=== PATIENT | male | born 1960 | race Caucasian/White ===

== ENCOUNTER 2017-01-27 12:18 | Observation (INO) | payer OTHER ==
[~2017-01-27] VITALS: Ht 170.2 cm; Wt 189.4 kg
[~2017-01-27 12:18] MED LIST: ALLOPURINOL300 MG PO; ASPIR 8181 M1 PO; ASPIRIN EC325 MG PO; ASPIRIN81 M1 PO; BAYER ASPIRIN325 M1 PO; COUMADIN5 MG PO; COUMADIN7.5 MG PO; FENOFIBRATE145 M1 PO; FUROSEMIDE40 MG PO; GLIPIZIDE10 M1 PO; GLUCOPHAGE1000 MG PO; GLUCOTROL10 MG PO; LANTUS 3 M100 UNITS/ PO; LANTUS 3 M100 UNITS1 SC; LASIX40 MG PO; LO-DOSE ASPIRIN81 M1 PO; LOVENOX120 MG/0.8 SC; MELOXICAM7.5 MG PO; METOPROLOL SUC100 MG PO; MOBIC7.5 MG PO; NOVOLOG PE100 UNITS/ SC; PERCOCET 5/31 TABLET PO; SIMVASTATIN20 M1 PO; SIMVASTATIN40 MG PO; TOPROL XL100 MG PO
[2017-01-27 12:44] LABS: POINT-OF-CARE METER ID UU13113747
[2017-01-27 13:01] LABS: EOSINOPHIL (%) 1.9 % (0-5); EOSINOPHIL COUNT 0.2 K/uL (0-0.3); HEMATOCRIT 37.9 % (38.0-50.0); IMMATURE GRANULOCYTE (%) 0.4 % (0.0-0.7); INSTRUMENT ABS NEUTROPHIL CT 6.3 K/uL; LYMPHOCYTE COUNT 1.7 K/uL (1.0-2.8); MCH 28.2 PG (29.0-34.0); MCHC 32.2 G/DL (30.0-36.0); MCV 87.5 FL (86-99); MEAN PLAT.VOLUME 9.1 uM^3 (9.0-12.4); MONOCYTE (%) 9.5 % (3-12); MONOCYTE COUNT 0.9 K/uL (0-0.8); NEUTROPHIL (%) 69.4 % (45-76); NEUTROPHIL COUNT 6.3 K/uL (1.8-6.4); PLATELET COUNT 345 K/uL (156-360); RBC DIS.WIDTH-CV 14.1 % (11.8-14.6); RBC DIS.WIDTH-SD 45.2 % (39-53); RED BLOOD COUNT 4.33 M/uL (4.00-5.50); WHITE BLOOD COUNT 9.1 K/uL (4.1-10.2)
[2017-01-27 13:10] LABS: CHLORIDE 103 mEq/L (99-109); POTASSIUM 4.9 mEq/L (3.7-5.4); SODIUM 137 mEq/L (136-147)
[2017-01-27 13:12] LABS: GLUCOSE 309 mg/dL (70-99)
[2017-01-27 13:13] LABS: ANION GAP 14 MEQ/L (2-14)
[2017-01-27 13:16] LABS: GFR ESTIMATE (CALCULATED) 56 mL/min/; UREA NITROGEN (BUN) 23 mg/dL (9-23)
[2017-01-27 13:22] LABS: TROP-I INTERPRETATION NEGATIVE; TROPONIN-I < 0.01 ng/mL (0.0-0.30)
[2017-01-27 14:04] LABS: ADD MIUA? NO; BILIRUBIN NEGATIVE; BLOOD NEGATIVE; COLOR YELLOW ((YELLOW)); GLUCOSE (STRIP) >=500; KETONES 5; LEUKOCYTES NEGATIVE; NITRITE NEGATIVE; PROTEIN (STRIP) NEGATIVE; SPECIFIC GRAVITY 1.023 (1.000-1.030); UROBILINOGEN 0.2 MG/DL (0.2-1.0)
[2017-01-27 15:39] LABS: CARBOXY HGB 1.8 % (0-5); METHEMOGLOBIN 0.9 % (0-1.5); PCO2 42 mm Hg (35-45)
[2017-01-27 15:40] LABS: PO2 57 mm Hg (80-100); SITE LR
[2017-01-27 15:41] LABS: COMMENTS - BLOOD GASES A+C+; DEVICE ROOM AIR; TOTAL RESP RATE 30 resp/min
[2017-01-27 15:49] LABS: INTER. NORMALIZED RATIO 2.2; PROTHROMBIN TIME 25.5 SEC (10.2-12.9)
[2017-01-27 15:52] LABS: Estimated Average Glucose 226 mg/dL (70-123); HEMOGLOBIN A1c (GLYCOHEMOGLOB) 9.5 % HGB (Below 5.7)
[2017-01-27] MEDS ORDERED: MELOXICAM7.5 MG PO (15:54)
[2017-01-27] MEDS ORDERED: ZYLOPRIM300 MG PO (15:55)
[2017-01-27] MEDS ORDERED: FENOFIBRATE145 M1 PO (15:55)
[2017-01-27] MEDS ORDERED: XARELTO20 MG PO (15:56)
[2017-01-27] MEDS ORDERED: LAMISIL250 MG PO (15:56)
[2017-01-27] MEDS ORDERED: K-DUR20 MEQ PO (15:57)
[2017-01-27] MEDS ORDERED: HUMULIN R500 UNIT/1 SC ×2 (15:59→16:00)
[2017-01-27] MEDS ORDERED: CYCLOSPORINE100 M2 PO (16:11)
[2017-01-27 16:55] VITALS: BP 130/60
[2017-01-27 18:55] LABS: ADD MIUA? YES; BILIRUBIN NEGATIVE; BLOOD SMALL; COLOR YELLOW ((YELLOW)); GLUCOSE (STRIP) >=500; KETONES NEGATIVE; LEUKOCYTES NEGATIVE; NITRITE NEGATIVE; PROTEIN (STRIP) NEGATIVE; SPECIFIC GRAVITY 1.018 (1.000-1.030); UROBILINOGEN 0.2 MG/DL (0.2-1.0)
[2017-01-27 19:06] LABS: BACTERIA NONE SEEN /HPF; EPITHELIAL CELLS RARE /HPF; HYALINE CASTS 0-5 /LPF; MUCUS TRACE /LPF; RED BLOOD CELLS 0-5 /HPF (0-5); UCUL ADDED? NO; WHITE BLOOD CELLS 0-5 /HPF (0-5)
[2017-01-27 20:30] VITALS: BP 158/62
[2017-01-27 20:31] VITALS: BP 139/61
[2017-01-27 20:32] VITALS: BP 166/73
[2017-01-27 23:46] VITALS: BP 120/56
[2017-01-28 01:11] LABS: TROP-I INTERPRETATION NEGATIVE; TROPONIN-I < 0.01 ng/mL (0.0-0.30)
[2017-01-28 03:48] VITALS: BP 137/61; BP 161/75
[2017-01-28 05:50] LABS: MCH 27.4 PG (29.0-34.0); MCHC 31.4 G/DL (30.0-36.0); MCV 87.5 FL (86-99); MEAN PLAT.VOLUME 9.5 uM^3 (9.0-12.4); PLATELET COUNT 345 K/uL (156-360); RBC DIS.WIDTH-SD 44.7 % (39-53); RED BLOOD COUNT 4.23 M/uL (4.00-5.50); WHITE BLOOD COUNT 6.2 K/uL (4.1-10.2)
[2017-01-28 06:26] LABS: ANION GAP 3 MEQ/L (2-14); CHLORIDE 100 MEQ/L (99-109); GFR ESTIMATE (CALCULATED) > 59 mL/min/; GLUCOSE 270 mg/dL (70-99); POTASSIUM 4.9 MEQ/L (3.7-5.4); SAMPLE HEMOLYSIS CHECK 0; SAMPLE ICTERIC CHECK 0; SAMPLE LIPEMIA CHECK 0; SODIUM 135 MEQ/L (136-147); UREA NITROGEN (BUN) 21 mg/dL (9-23)
[2017-01-28 06:41] LABS: TROP-I INTERPRETATION NEGATIVE; TROPONIN-I < 0.01 ng/mL (0.0-0.30)
[2017-01-28 07:15] VITALS: BP 137/61
[2017-01-28 11:45] VITALS: BP 152/70
[2017-01-28] MEDS ORDERED: CYCLOSPORINE M100 MG PO (12:04)
== END 2017-01-28 13:15 | disposition home or self-care (01) ==
LOC: EME → EDBD 12:18 → EDOF 15:06 → ENRESERV 15:07 → 5WEST 16:34
PROVIDERS: Emergency Medicine; Internal Medicine
DX: L88 Pyoderma gangrenosum (principal); E86.0 Dehydration; R55 Syncope and collapse; R09.02 Hypoxemia; E66.01 Morbid (severe) obesity due to excess calories; E11.65 Type 2 diabetes mellitus with hyperglycemia; I10 Essential (primary) hypertension; E78.5 Hyperlipidemia, unspecified; Z86.711 Personal history of pulmonary embolism; Z86.718 Personal history of other venous thrombosis and embolism; Z79.01 Long term (current) use of anticoagulants; Z79.4 Long term (current) use of insulin; Z79.84 Long term (current) use of oral hypoglycemic drugs; Z68.44 Body mass index [BMI] 60.0-69.9, adult
CPT/HCPCS: 36600; 70450; 71010; 80048; 81003; 82803; 82948; 83036; 84484; 85025; 85027; 85610; 93005; 94799; 99281; 99284; G0378; J1815; J7502

== ENCOUNTER 2017-02-01 14:33 | Emergency (ER) | payer OTHER ==
[~2017-02-01] VITALS: Ht 170.2 cm; Wt 191.3 kg
[~2017-02-01 14:33] MED LIST changes: +CYCLOSPORINE M100 MG PO; +CYCLOSPORINE100 M2 PO; +HUMULIN R500 UNIT/1 SC; +K-DUR20 MEQ PO; +LAMISIL250 MG PO; +XARELTO20 MG PO; +ZYLOPRIM300 MG PO
[2017-02-01 15:19] LABS: BASOPHIL COUNT 0.1 K/uL (0-0.1); EOSINOPHIL COUNT 0.2 K/uL (0-0.3); HEMATOCRIT 37.9 % (38.0-50.0); IMMATURE GRANULOCYTE (%) 0.5 % (0.0-0.7); LYMPHOCYTE COUNT 2.1 K/uL (1.0-2.8); MCH 27.8 PG (29.0-34.0); MCHC 31.9 G/DL (30.0-36.0); MCV 87.1 FL (86-99); MEAN PLAT.VOLUME 9.3 uM^3 (9.0-12.4); MONOCYTE (%) 8.7 % (3-12); MONOCYTE COUNT 0.7 K/uL (0-0.8); PLATELET COUNT 351 K/uL (156-360); RBC DIS.WIDTH-SD 44.7 % (39-53); RED BLOOD COUNT 4.35 M/uL (4.00-5.50); WHITE BLOOD COUNT 8.1 K/uL (4.1-10.2)
[2017-02-01 15:24] LABS: INTER. NORMALIZED RATIO 1.4; PROTHROMBIN TIME 15.5 SEC (10.2-12.9)
[2017-02-01 15:30] LABS: CHLORIDE 101 mEq/L (99-109); SODIUM 137 mEq/L (136-147)
[2017-02-01 15:34] LABS: ANION GAP 13 MEQ/L (2-14); TOTAL BILIRUBIN 0.3 mg/dL (0.0-1.0)
[2017-02-01 15:36] LABS: ALKALINE PHOSPHATASE 71 IU/L (3-129); GFR ESTIMATE (CALCULATED) 51 mL/min/
[2017-02-01 15:37] LABS: GLUCOSE 451 mg/dL (70-99); UREA NITROGEN (BUN) 21 mg/dL (9-23)
[2017-02-01 15:39] LABS: TROP-I INTERPRETATION NEGATIVE; TROPONIN-I < 0.01 ng/mL (0.0-0.30)
[2017-02-01 15:53] LABS: ADD MIUA? YES; BILIRUBIN NEGATIVE; BLOOD SMALL; COLOR STRAW ((YELLOW)); GLUCOSE (STRIP) >=500; KETONES NEGATIVE; LEUKOCYTES NEGATIVE; NITRITE NEGATIVE; PROTEIN (STRIP) NEGATIVE; SPECIFIC GRAVITY 1.023 (1.000-1.030); UROBILINOGEN 0.2 MG/DL (0.2-1.0)
[2017-02-01 15:59] LABS: BACTERIA NONE SEEN /HPF; EPITHELIAL CELLS NONE SEEN /HPF; HYALINE CASTS 0-5 /LPF; MUCUS NONE SEEN /LPF; RED BLOOD CELLS 0-5 /HPF (0-5); UCUL ADDED? NO; WHITE BLOOD CELLS 0-5 /HPF (0-5)
[2017-02-01 17:16] LABS: POINT-OF-CARE METER ID UU13113702
[2017-02-01 19:18] VITALS: BP 172/85
[2017-02-01 19:30] LABS: POINT-OF-CARE METER ID UU13113702
[2017-02-01 20:05] LABS: POINT-OF-CARE METER ID UU13113702
== END 2017-02-01 20:10 | disposition home or self-care (01) ==
LOC: EME 14:33
PROVIDERS: Emergency Medicine
DX: E11.65 Type 2 diabetes mellitus with hyperglycemia (principal); Z79.4 Long term (current) use of insulin; R06.02 Shortness of breath; R42 Dizziness and giddiness; R11.10 Vomiting, unspecified; E78.5 Hyperlipidemia, unspecified; Z86.718 Personal history of other venous thrombosis and embolism; Z95.1 Presence of aortocoronary bypass graft; Z87.891 Personal history of nicotine dependence
CPT/HCPCS: 71020; 71275; 80053; 81003; 82010; 82948; 84484; 85025 91; 85610; 99281; 99285; J7030

== ENCOUNTER 2017-08-16 16:07 | Emergency (ER) | payer OTHER ==
[~2017-08-16] VITALS: Ht 170.2 cm; Wt 188.7 kg
[2017-08-16 16:37] LABS: HEMATOCRIT 43.2 % (38.0-50.0); HEMOGLOBIN 13.9 G/DL (12.5-16.6); MCH 27.6 PG (29.0-34.0); MCHC 32.2 G/DL (30.0-36.0); MCV 85.9 FL (86-99); PLATELET COUNT 311 K/uL (156-360); RBC DIS.WIDTH-CV 13.6 % (11.8-14.6); RBC DIS.WIDTH-SD 42.5 % (39-53); RED BLOOD COUNT 5.03 M/uL (4.00-5.50); WHITE BLOOD COUNT 10.6 K/uL (4.1-10.2)
[2017-08-16 16:49] LABS: CHLORIDE 105 mEq/L (99-109); POTASSIUM 4.6 mEq/L (3.7-5.4); SODIUM 142 mEq/L (136-147)
[2017-08-16 16:51] LABS: GLUCOSE 243 mg/dL (70-99)
[2017-08-16 16:55] LABS: CREATININE 1.5 mg/dL (0.6-1.3); GFR ESTIMATE (CALCULATED) 51 mL/min/ (58.99-99999)
[2017-08-16 16:56] LABS: UREA NITROGEN (BUN) 29 mg/dL (9-23)
[2017-08-16 17:03] LABS: TROP-I INTERPRETATION NEGATIVE; TROPONIN-I < 0.01 ng/mL (0.0-0.30)
[2017-08-16] MEDS ORDERED: PREDNISONE50 MG PO ×2 (18:28→20:49)
[2017-08-16 19:32] LABS: INTER. NORMALIZED RATIO 1.5
[2017-08-16 19:34] LABS: PTT 36.5 SEC (25-37)
[2017-08-16] MEDS ORDERED: PROTOPIC 0.1% O30 GM PO (20:30)
[2017-08-16] MEDS ORDERED: FLONASE16 G1 BOTH NARES (20:31)
[2017-08-16 21:47] VITALS: BP 128/73
== END 2017-08-16 21:47 | disposition left against medical advice (07) ==
LOC: EME 16:07
PROVIDERS: Emergency Medicine
DX: J44.1 Chronic obstructive pulmonary disease with (acute) exacerbation (principal); I44.0 Atrioventricular block, first degree; I49.1 Atrial premature depolarization; R94.31 Abnormal electrocardiogram [ECG] [EKG]; E11.9 Type 2 diabetes mellitus without complications; I10 Essential (primary) hypertension; E78.5 Hyperlipidemia, unspecified; M10.9 Gout, unspecified; F31.9 Bipolar disorder, unspecified; Z79.4 Long term (current) use of insulin; Z79.01 Long term (current) use of anticoagulants; Z87.891 Personal history of nicotine dependence; Z86.718 Personal history of other venous thrombosis and embolism; Z86.73 Personal history of transient ischemic attack (TIA), and cerebral infarction without residual deficits
CPT/HCPCS: 71046; 80048; 83880; 84484; 85027; 85610; 85730; 93005; 94640; 99281; 99285; J7512; J7644